=== PATIENT | male | born 1945 | race Caucasian/White ===

== ENCOUNTER 2016-11-28 09:23 | Day surgery (SDC) | payer MEDICARE ==
[2016-11-28] MEDS ORDERED: LACTATED RINGERS 1,000 ML IV ONE ×2 (10:13→12:35)
[2016-11-28] MEDS ORDERED: MIDAZOLAM 2 MG/2 ML VIAL IVP ONE (12:05)
[2016-11-28] MEDS ORDERED: fentaNYL 250 MCG/5 ML VIAL IVP ONE (12:05)
== END 2016-11-28 09:24 | disposition home or self-care (01) ==
PROC: 0DBL8ZZ Excision of Transverse Colon, Via Natural or Artificial Opening Endoscopic (ICD-10-PCS; 2016-11-28)
PROC: 0DBP8ZZ Excision of Rectum, Via Natural or Artificial Opening Endoscopic (ICD-10-PCS; 2016-11-28)
PROC: 0DBC8ZZ Excision of Ileocecal Valve, Via Natural or Artificial Opening Endoscopic (ICD-10-PCS; principal; 2016-11-28 10:45)
DX: Z12.11 Encounter for screening for malignant neoplasm of colon (principal); D12.3 Benign neoplasm of transverse colon; D12.0 Benign neoplasm of cecum; K62.1 Rectal polyp; K64.8 Other hemorrhoids; I35.0 Nonrheumatic aortic (valve) stenosis
CPT/HCPCS: 45380; J3010; J7120

== ENCOUNTER 2021-01-08 23:14 | Outpatient (CLI) | payer MEDICARE | END 2021-01-08 23:15 | disposition critical access hospital (66) | LOC: EMS 23:14 | DX: H93.19 Tinnitus, unspecified ear (principal); R23.2 Flushing; R44.9 Unspecified symptoms and signs involving general sensations and perceptions | CPT/HCPCS: A0425; A0429 ==

== ENCOUNTER 2021-01-08 23:45 | Emergency (ER) | payer MEDICARE ==
--- NOTE | 2021-01-09 00:04 | ED Physician Documentation ---
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 When he felt that his heart rate was about 150 he thought he would going and talk to his about going to the hospital. He has had resolution of most of his symptoms prior to coming to the emergency department by ambulance. He denies any specific chest pain. He has been in to see his primary care recently About a cough that he has had for the past 2 to 3 months. He has been put on a nasal spray and Zyrtec and he has had some improvement in his symptoms. He is no longer having issue with cough or nasal drainage. Review of Systems Constitutional: denies: Fever Eyes: denies: Decreased vision Ears: denies: Ear pain Nose: reports: Rhinorrhea / runny nose, Congestion (Improved) Throat: denies: Dental pain / toothache, Sore throat Cardiac: denies: Chest pain / pressure, Palpitations, Pedal edema, Calf pain Respiratory: denies: Dyspnea, Cough, Wheezing GI: denies: Abdominal Pain, Nausea, Vomiting : denies: Dysuria, Frequency PD PAST MEDICAL HISTORY - Past Medical History Past Medical History: Yes Cardiovascular: High cholesterol, Murmur, Valve disorder Respiratory: None Endocrine/Autoimmune: None GI: Colon polyps : None HEENT: None Psych: None Musculoskeletal: None Derm: Other - Past Surgical History Past Surgical History: Yes General: Cholecystectomy, Appendectomy - Present Medications Home Medications: Ambulatory Orders Medication Instructions Recorded Confirmed Aspirin [Aspir-Low] 1 tab PO DAILY 11/27/16 01/08/21 Atorvastatin Calcium 20 mg PO DAILY 11/27/16 01/08/21 Cetirizine [ZyrTEC] 10 tab PO DAILY 01/09/21 01/09/21 Fluticasone [Flonase] 2 spray NS DAILY PRN 01/09/21 01/09/21 - Allergies Allergies/Adverse Reactions: Allergies Allergy/AdvReac Type Severity Reaction Status Date / Time plastics Allergy Intermediate Rash Uncoded 01/08/21 23:54 - Social History Does the pt smoke?: No Smoking Status: Never smoker Does the pt drink ETOH?: Yes Does the pt have substance abuse?: No - Immunizations Immunizations are current?: Yes - POLST Patient has POLST: No PD ED PE NORMAL - Vitals Vital signs reviewed: Yes (Hypertensive) - General General: Alert and oriented X 3, No acute distress, Well developed/nourished - HEENT HEENT: Atraumatic, PERRL, EOMI, Other (There is minimal inflammation on the left TM with preserved architecture and on the right there is tympanosclerosis erythema in the attic and rounding of the umbo.) - Neck Neck: Supple, no meningeal sign, No bony TTP - Cardiac Cardiac: RRR, No murmur - Respiratory Respiratory: No respiratory distress, Clear bilaterally - Abdomen Abdomen: Normal bowel sounds, Soft, Non tender, Non distended, No organomegaly - Back Back: No CVA TTP, No spinal TTP - Derm Derm: Normal color, Warm and dry, No rash - Extremities Extremities: No deformity, No edema - Neuro Neuro: Alert and oriented X 3, 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 practitioner 2-12 intact, No motor deficit, No sensory deficit, Normal speech Eye Opening: Spontaneous Motor: Obeys Commands Verbal: Oriented GCS Score: 15 - Psych Psych: Normal mood, Normal affect Results - Vitals Vitals: Vital Signs - 24 hr 01/08/21 01/08/21 01/09/21 23:44 23:57 00:20 Temperature 36.6 C 36.3 C L Heart Rate 87 87 84 Respiratory 17 16 Rate Blood Pressure 164/94 H 137/81 H O2 Saturation 97 97 95 01/09/21 01/09/21 02:00 03:01 Temperature 36.6 C Heart Rate 53 L 64 Respiratory 16 17 Rate Blood Pressure 155/81 H 161/79 H O2 Saturation 97 99 Oxygen O2 Source Room air - EKG (time done) 2351 Rate: Rate (enter#) (87) Rhythm: NSR, LAE Compare to prior EKG: Changed from prior EKG (SPT 05-04-2016 LAE has developed) Computer interpretation: Agree with computer - Labs Labs: Laboratory Tests 01/09/21 01/09/21 01/09/21 00:28 00:28 00:28 WBC 4.5 L RBC 4.57 L Hgb 14.0 Hct 41.0 L MCV 89.7 MCH 30.6 MCHC 34.1 RDW 12.2 Plt Count 213 MPV 9.3 Neut # (Auto) 2.4 Lymph # (Auto) 1.7 Swift # (Auto) 0.3 Eos # (Auto) 0.1 Baso # (Auto) 0.0 Absolute Nucleated RBC 0.00 Nucleated RBC % 0.0 Sodium 139 Potassium 3.7 Chloride 106 Carbon Dioxide 22 Anion Gap 11.0 BUN 22 H Creatinine 1.0 Estimated GFR (MDRD) 73 L Glucose 103 H Calcium 9.3 Total Bilirubin 1.1 H AST 28 ALT 28 Alkaline Phosphatase 44 Troponin I High Sens 7.7 Total Protein 6.9 Albumin 4.3 Globulin 2.6 Albumin/Globulin Ratio 1.7 Lipase 35 Ethyl Alcohol 6.2 - Rads (name of study) chest Radiology: Prelim report reviewed (Impression: 1. No acute cardiopulmonary process. Aortic valve prosthesis.), EMP read indepedently, See rad report Procedures - IVC sono (time) 0300 Bedside IVC sono: IVC measures (cm) (1.02), Dehydration (est > 1 liter deficit) PD MEDICAL DECISION MAKING - ED course Complexity details: reviewed results, re-evaluated patient, considered differential, d/w patient, d/w family ED course: 75-year-old male previously well with a bovine prosthesis prosthetic aortic valve has had an episode of rapid heart rate this evening that he felt was related to stress. He certainly has enough to cause stress and I did discuss with the patient the possibility of alcohol withdrawal contributing to this as we found that his alcohol level was low. 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 I do not feel this is enough wine or alcohol to cause a symptom of withdrawal being this profound. The patient is found to be dehydrated on interrogation the inferior vena cava and is administered saline and at the conclusion of the visit the patient feels entirely well. I believe this is a stress reaction. We did not find abnormalities to the electrocardiogram chest x-ray or blood work. Departure - Departure Disposition: 01 Home, Self Care Clinical Impression: Stress reaction, Dehydration Condition: Stable Instructions: ED Stress React, ED Dehydration Follow-Up: JOE KHAN MD [Primary Care Provider] -
[2021-01-09 00:34] LABS: BASOPHILS % (AUTO) 0.4 %; EOSINOPHILS # (AUTO) 0.1 10^3/uL (0.0-0.7); EOSINOPHILS % (AUTO) 2.6 %; LYMPHOCYTES # (AUTO) 1.7 10^3/uL (1.5-3.5); LYMPHOCYTES % (AUTO) 36.6 %; MEAN CORPUSCULAR HEMOGLOBIN 30.6 pg (27.0-31.0); MEAN CORPUSCULAR HGB CONC 34.1 g/dL (32.0-36.0); MEAN CORPUSCULAR VOLUME 89.7 fL (80.0-94.0); MEAN PLATELET VOLUME 9.3 fL (7.4-11.4); MONOCYTES # (AUTO) 0.3 10^3/uL (0.0-1.0); MONOCYTES % (AUTO) 7.5 %; NEUTROPHILS # (AUTO) 2.4 10^3/uL (1.5-6.6); NEUTROPHILS % (AUTO) 52.7 %; PLT - PLATELET COUNT 213 10^3/uL (130-450); RED BLOOD COUNT 4.57 10^6/uL (4.70-6.10); RED CELL DISTRIBUTION WIDTH 12.2 % (12.0-15.0); WHITE BLOOD COUNT 4.5 x10^3/uL (4.8-10.8)
[2021-01-09 00:49] LABS: ALBUMIN 4.3 g/dL (3.2-5.5); ALBUMIN/GLOBULIN RATIO 1.7 (1.0-2.2); BILIRUBIN,TOTAL 1.1 mg/dL (0.2-1.0); CALCIUM 9.3 mg/dL (8.5-10.3); ETOH - ETHANOL 6.2 mg/dL; POTASSIUM 3.7 mmol/L (3.5-5.0); TOTAL PROTEIN 6.9 g/dL (6.7-8.2)
[2021-01-09] MEDS ORDERED: SODIUM CHLORIDE 0.9% 1,000 ML IV STA (02:52)
[2021-01-09 03:37] VITALS: BP 161/82
--- NOTE | 2021-01-09 08:17 | XRAY Report ---
PROCEDURE: Chest 1 View X-Ray INDICATIONS: chest pain TECHNIQUE: One view of the chest was acquired. COMPARISON: None FINDINGS: Surgical changes and devices: A percutaneously placed aortic valve prosthesis can be seen. Lungs and pleura: No pleural effusions or pneumothorax. Lungs are clear. Mediastinum: Mediastinal contours appear normal. Heart size is normal. Bones and chest wall: No suspicious bony lesions. Age-appropriate degenerative changes are seen. Overlying soft tissues appear unremarkable. IMPRESSION: Normal portable chest for age, with note made of a prosthetic aortic valve. Note: No significant discrepancy from the preliminary report. Reviewed by: Edwin Watt MD on 01/09/2021 7:16 AM JETT Approved by: Edwin Watt MD on 01/09/2021 7:16 AM JETT Station ID: [id number]
== END 2021-01-09 03:49 | disposition home or self-care (01) ==
LOC: EDUNIT# → ED 23:45
DX: F43.9 Reaction to severe stress, unspecified (principal); R00.0 Tachycardia, unspecified; E86.0 Dehydration; Z95.3 Presence of xenogenic heart valve
CPT/HCPCS: 36415; 71045; 80053; 83690; 84484; 85025; 93005; 96360; 99284; G0480; 80320